=== PATIENT | female | born 1960 | race Caucasian/White ===

== ENCOUNTER → 2017-03-03 | Outpatient (CLI) | payer MEDICAID ==
[~2017-03-03] MED LIST: FAMO-79 PO; PHEN100C PO; PREMPRO PO
[2017-03-03 12:39] LABS: HEMATOCRIT 40.7 % (34.6-47.8); HEMOGLOBIN 13.7 g/dL (11.7-16.4); WHITE BLOOD COUNT 7.8 x10^3/uL (3.4-10)
[2017-03-03 12:52] LABS: ASPARTATE AMINO TRANSFERASE 14 U/L (15-37); BLOOD UREA NITROGEN 6 mg/dL (7-18)
== END | disposition home or self-care (01) ==
LOC: STAR 11:54
PROVIDERS: ATTEND Specialist
DX: Z01.818 Encounter for other preprocedural examination (principal); R79.1 Abnormal coagulation profile
CPT/HCPCS: 36415; 71020; 80053; 85025; 85610; 85730; 93005

== ENCOUNTER 2017-03-29 05:35 | Day surgery (SDC) | payer MEDICAID ==
[~2017-03-29] VITALS: Ht 170.2 cm; Wt 89.1 kg
[2017-03-29] MEDS ORDERED: LACTATED RINGERS 1,000 ML IV SCH (06:11)
[2017-03-29 06:12] VITALS: BP 157/100
[2017-03-29] MEDS ORDERED: BUPIVACAINE/PF 0.25% ONE (06:47)
[2017-03-29] MEDS ORDERED: HEPARIN 1,000 UNITS/ML, 10ML ONE (06:47)
[2017-03-29] MEDS ORDERED: EPINEPHRINE 1 MG/ML, 1ML ONE (06:47)
[2017-03-29] MEDS ORDERED: ROCURONIUM 10 MG/ML ONE ×2 (06:53)
[2017-03-29] MEDS ORDERED: PROPOFOL 10 MG/ML, 20ML ONE ×4 (06:53→07:19)
[2017-03-29] MEDS ORDERED: FENTANYL PF 250 MCG/5ML ONE (06:53)
[2017-03-29] MEDS ORDERED: MIDAZOLAM 1 MG/ML, 2ML ONE (06:53)
[2017-03-29] MEDS ORDERED: CEFAZOLIN 1,000 MG ONE ×2 (06:54→07:51)
[2017-03-29] MEDS ORDERED: ALBUTEROL SULFATE 2.5MG/0.5ML ONE (07:09)
[2017-03-29] MEDS ORDERED: SCOPOLAMINE PATCH, 1MG PATCH.TD72 TD ONE ×2 (07:09)
[2017-03-29] MEDS ORDERED: ROCURONIUM 10MG/ML,5ML ONE (07:36)
[2017-03-29] MEDS ORDERED: LABETALOL 5MG/ML, 20ML ONE (07:51)
[2017-03-29] MEDS ORDERED: EPHEDRINE 50 MG/ML, 1ML IVPush PRN (08:30)
[2017-03-29] MEDS ORDERED: METOPROLOL 1 MG/ML, 5ML IV PRN (08:30)
[2017-03-29] MEDS ORDERED: PROMETHAZINE 25 MG/ML, 1ML IV PRN (08:30)
[2017-03-29] MEDS ORDERED: ALBUTEROL SULFATE 2.5 MG/3 ML NPPB PRN (08:30)
[2017-03-29] MEDS ORDERED: hydrALAzine 20 MG/ML, 1ML IV PRN (08:30)
[2017-03-29] MEDS ORDERED: ACETAMINOPHEN 325 MG TABLET PO PRN (08:30)
[2017-03-29] MEDS ORDERED: ONDANSETRON 2MG/ML, 2ML IVPush PRN (08:30)
[2017-03-29] MEDS ORDERED: LABETALOL 5MG/ML, 20ML IV PRN (08:30)
[2017-03-29] MEDS ORDERED: OXYcodone 5 MG/5 ML ORAL.SOL UDC PO PRN (08:30)
[2017-03-29] MEDS ORDERED: NEOSTIGMINE 1 MG/ML, 10ML ONE (08:45)
[2017-03-29] MEDS ORDERED: GLYCOPYRROLATE 0.2MG/1ML, 5ML ONE (08:45)
[2017-03-29] MEDS ORDERED: DEXAMETHASONE 4 MG/ML, 1ML ONE ×2 (08:46)
[2017-03-29] MEDS ORDERED: ONDANSETRON 2MG/ML, 2ML ONE (08:46)
[2017-03-29] MEDS: FENTANYL PF 100 MCG/2ML IV PRN ×3 (09:20→10:15)
[2017-03-29] MEDS ORDERED: FENTANYL PF 100 MCG/2ML ONE ×2 (09:22→10:14)
[2017-03-29] MEDS ORDERED: HYDROmorphone 1 MG/ML, 1ML ONE ×2 (09:22→09:42)
[2017-03-29] MEDS: HYDROmorphone 1 MG/ML, 1ML IV PRN ×6 (09:25→10:05)
[2017-03-29] MEDS ORDERED: OXYcodone 5 MG/5 ML ORAL.SOL UDC ONE (09:42)
[2017-03-29] MEDS ORDERED: PROMETHAZINE 25 MG/ML, 1ML ONE (09:44)
[2017-03-29] MEDS ORDERED: KETOROLAC 30 MG/1 ML ONE (10:15)
[2017-03-29] MEDS ORDERED: KETOROLAC 30 MG/1 ML IVPush ONE (10:30)
[2017-03-29] MEDS ORDERED: PHENYTOIN 100 MG CAPSULE PO ONE (10:30)
[2017-03-29] MEDS ORDERED: OXYcodone/APAP 10/325MG TABLET ONE (12:56)
[2017-03-29] MEDS ORDERED: OXYcodone/APAP 10/325MG TABLET PO ONE (13:00)
== END 2017-03-29 13:55 | disposition home or self-care (01) ==
LOC: OUT 05:35
PROVIDERS: ATTEND Obstetrics & Gynecology Gynecologic Oncology
DX: D25.9 Leiomyoma of uterus, unspecified (principal); N93.9 Abnormal uterine and vaginal bleeding, unspecified; N84.0 Polyp of corpus uteri; N83.8 Other noninflammatory disorders of ovary, fallopian tube and broad ligament
CPT/HCPCS: 36415; 58571; 86850; 86900; 86923; 88307; J0171; J0690; J1100; J1170; J1885; J2250; J2405; J2550; J2704; J2710; J3010; J3490; J7120; J1644; J7611